=== PATIENT | female | born 1940 | race African-American/Black ===

== ENCOUNTER → 2017-03-10 | Outpatient (CLI) | payer MEDICARE, OTHER ==
[~2017-03-10] VITALS: Ht 160 cm; Wt 92.6 kg
[~2017-03-10] MED LIST: 00186-0370-20 IH; ASPIRIN 81M81 MG/TA2 PO; B-121000 MCG PO; IRON325 M2 PO; MOBIC15 MG PO; NEURONTIN300 MG/CAP PO; PRILOSEC 20MG20 MG PO; PRIMATENE 12.51 TAB PO; PRINZIDE 12.5 M1 TAB PO; PROAIR HFA0.09 MG/AC IH; ZOCOR 20MG20 MG PO
[2017-03-10 09:34] VITALS: BP 172/101; PULSE 78
[2017-03-10 10:38] VITALS: BP 181/110; PULSE 75
[2017-03-10 10:52] VITALS: BP 184/108; PULSE 71
== END ==
LOC: COL.RAD 09:13
DX: M54.5 Low back pain (principal)
CPT/HCPCS: J3301

== ENCOUNTER 2018-04-14 12:22 | Day surgery (SDC) | payer MEDICARE ==
[~2018-04-14] VITALS: Ht 160.1 cm; Wt 89.0 kg
[2018-04-14] VITALS (12 sets, daily range): BP systolic 144–188; BP diastolic 71–96; PULSE 72–82; TEMP 98–98.3
[2018-04-14 13:35] LABS: HEMOGLOBIN 11.7 g/dl (12.5-16.0); MEAN CELL VOLUME 87 fl (80.0-100.0); MEAN CORPUSCULAR HEMOGLOBIN 29 pg (27.0-31.0); MEAN CORPUSCULAR HGB CONC 33 g/dl (33.0-37.0); MEAN PLATELET VOLUME 10.2 fl (7.4-10.4); PLATELET COUNT 314 K/mm3 (130-400); RED BLOOD COUNT 4.07 M/mm3 (4.10-5.30); REDCELL DISTRIBUTION WIDTH-CV 15.5 % (11.5-14.5)
[2018-04-14 13:37] LABS: HEMATOCRIT 35.4 % (37.0-47.0)
[2018-04-14] MEDS ORDERED: CALCIUM 600MG+D1 TAB PO (13:37)
[2018-04-14] MEDS ORDERED: VITAMIN B12 1541 TAB PO (13:37)
[2018-04-14 13:40] LABS: PROTHROMBIN TIME 11.6 SECONDS (9.7-12.8)
[2018-04-14 13:42] LABS: PARTIAL THROMBOPLASTIN TIME 35.6 SECONDS (26.0-37.0)
[2018-04-14 13:45] LABS: CALCIUM 9.3 mg/dL (8.4-10.2); CREATININE, serum 0.69 mg/dL (0.52-1.25); POTASSIUM 4.2 mmol/L (3.4-5.0)
== END 2018-04-14 20:15 | disposition home or self-care (01) ==
LOC: COL.CAR 12:22
PROVIDERS: Internal Medicine Interventional Cardiology
DX: R07.9 Chest pain, unspecified (principal); R94.39 Abnormal result of other cardiovascular function study; I25.10 Atherosclerotic heart disease of native coronary artery without angina pectoris; Z79.82 Long term (current) use of aspirin; Z79.899 Other long term (current) drug therapy; M79.605 Pain in left leg; R53.83 Other fatigue
CPT/HCPCS: J0360; J2250; J3010; Q9967

== ENCOUNTER 2018-04-21 10:51 | Inpatient (IN) | payer MEDICARE ==
[~2018-04-21] VITALS: Ht 157.5 cm; Wt 87.4 kg
[~2018-04-21 10:51] MED LIST changes: +CALCIUM 600MG+D1 TAB PO; +VITAMIN B12 1541 TAB PO
[2018-04-21 12:34] VITALS: BP 80/59; PULSE 84; TEMP 98.7
[2018-04-21] MEDS ORDERED: NORCO 325 MG-51 TAB PO (12:58)
[2018-04-21] MEDS ORDERED: ZANAFLEX2 MG PO (13:01)
[2018-04-21] MEDS ORDERED: CALTRATE 600 +1 TAB PO (13:27)
[2018-04-21] MEDS ORDERED: PRINIVIL20 MG PO (13:40)
[2018-04-21] MEDS ORDERED: 00186-0372-20 IH (13:56)
[2018-04-21] MEDS ORDERED: VENTOLIN0.09 MG IH (14:02)
[2018-04-21 15:55] VITALS: BP 143/78; PULSE 82
[2018-04-22 04:59] VITALS: BP 135/60; PULSE 81; TEMP 98.2
[2018-04-22 17:55] VITALS: BP 139/68; PULSE 101; TEMP 98.9
[2018-04-23 05:29] VITALS: BP 170/87; PULSE 100; TEMP 98.7
[2018-04-23 12:53] VITALS: BP 165/84; PULSE 94
[2018-04-23 18:50] VITALS: BP 132/67; PULSE 99; TEMP 99.4
[2018-04-24 05:34] VITALS: BP 134/76; PULSE 80; TEMP 98.2
[2018-04-24 18:38] VITALS: BP 128/55; PULSE 86; TEMP 99.5
[2018-04-25 06:00] VITALS: BP 145/67; PULSE 80; TEMP 98.3
[2018-04-25 18:03] VITALS: BP 138/57; PULSE 89; TEMP 98.4
[2018-04-26 06:00] VITALS: BP 151/52; PULSE 81; TEMP 98.7
[2018-04-26 16:26] VITALS: BP 133/68; PULSE 90; TEMP 98.7
[2018-04-27 05:42] VITALS: BP 163/81; PULSE 86; TEMP 98.6
[2018-04-27 18:00] VITALS: BP 118/58; PULSE 89; TEMP 99.3
[2018-04-28 06:00] VITALS: BP 158/83; PULSE 88; TEMP 99.4
[2018-04-28 17:24] VITALS: BP 168/76; PULSE 92; TEMP 98.6
[2018-04-29 05:08] VITALS: BP 178/77; PULSE 84; TEMP 98.7
[2018-04-29 13:01] VITALS: BP 112/51; PULSE 88
[2018-04-29 17:29] VITALS: BP 157/86; PULSE 93; TEMP 99.7
[2018-04-30 06:00] VITALS: BP 153/76; PULSE 80; TEMP 97.9
[2018-04-30 14:54] VITALS: BP 132/56; PULSE 93; TEMP 98.9
[2018-05-01 05:29] VITALS: BP 138/62; PULSE 73; TEMP 97.9
[2018-05-01 07:52] LABS: CALCIUM 9.3 mg/dL (8.4-10.2); CREATININE, serum 0.73 mg/dL (0.52-1.25); POTASSIUM 4.1 mmol/L (3.4-5.0)
[2018-05-01] MEDS ORDERED: ZANAFLEX2 MG PO (12:00)
[2018-05-01] MEDS ORDERED: TYLENOL 325MG325 MG PO (12:01)
[2018-05-01] MEDS ORDERED: GOOD NEIGHBOR P1 CRE TP (12:01)
[2018-05-01] MEDS ORDERED: NEURONTIN300 MG/CAP PO ×2 (12:03→12:04)
[2018-05-01] MEDS ORDERED: NEURONTIN600 MG/TAB PO (12:03)
[2018-05-01] MEDS ORDERED: LIDODERM 5% PATC1 EA TP (12:04)
[2018-05-01] MEDS ORDERED: CAPSAICIN0.025% TP (12:04)
[2018-05-01] MEDS ORDERED: NORCO 325 MG-51 TAB PO (12:07)
== END 2018-05-01 13:35 | disposition home health service (06) | DRG 552 ==
PROVIDERS: Family Medicine
DX: M48.062 Spinal stenosis, lumbar region with neurogenic claudication (principal); I10 Essential (primary) hypertension; J45.909 Unspecified asthma, uncomplicated; Z87.891 Personal history of nicotine dependence; K21.9 Gastro-esophageal reflux disease without esophagitis
CPT/HCPCS: 99222-AI; 99232-AI; 99239; J1650

== ENCOUNTER → 2018-08-10 | Outpatient (CLI) | payer MEDICARE ==
[~2018-08-10] MED LIST changes: +00186-0372-20 IH; +CALTRATE 600 +1 TAB PO; +CAPSAICIN0.025% TP; +GOOD NEIGHBOR P1 CRE TP; +LIDODERM 5% PATC1 EA TP; +NEURONTIN600 MG/TAB PO; +NORCO 325 MG-51 TAB PO; +PRINIVIL20 MG PO; +TYLENOL 325MG325 MG PO; +VENTOLIN0.09 MG IH; +ZANAFLEX2 MG PO
== END ==
LOC: COL.RAD 09:54
DX: M43.17 Spondylolisthesis, lumbosacral region (principal); M48.061 Spinal stenosis, lumbar region without neurogenic claudication; M99.71 Connective tissue and disc stenosis of intervertebral foramina of cervical region; M54.16 Radiculopathy, lumbar region; M54.41 Lumbago with sciatica, right side; Z98.1 Arthrodesis status

== ENCOUNTER → 2018-12-29 | Outpatient (CLI) | payer MEDICARE | LOC: COL.RAD 12:56 | DX: M48.061 Spinal stenosis, lumbar region without neurogenic claudication (principal); M43.17 Spondylolisthesis, lumbosacral region; M54.41 Lumbago with sciatica, right side; Z98.1 Arthrodesis status; M54.16 Radiculopathy, lumbar region ==

== ENCOUNTER → 2022-05-23 | Outpatient (CLI) | payer MEDICARE | LOC: COL.RAD 10:02 | DX: M25.552 Pain in left hip (principal) | CPT/HCPCS: J3301; Q9967 ==